=== PATIENT | female | born 1985 | race Caucasian/White ===

== ENCOUNTER → 2017-01-31 | Outpatient (REF) | payer OTHER | LOC: M SFHCWAGY 14:06 | PROVIDERS: ATTEND Nurse Practitioner Women's Health | DX: Z12.4 Encounter for screening for malignant neoplasm of cervix (principal); R87.610 Atypical squamous cells of undetermined significance on cytologic smear of cervix (ASC-US) ==

== ENCOUNTER 2017-03-03 12:19 | Emergency (ER) | payer OTHER ==
[~2017-03-03] VITALS: Ht 160 cm; Wt 58.8 kg
[2017-03-03] MEDS ORDERED: OMEP40CA2 PO (12:29)
[2017-03-03 13:34] LABS: MEAN CORPUSCULAR HEMOGLOBIN 30.7 pg (27.0-33.0); MEAN CORPUSCULAR HGB CONC 34.5 g/dl (32.0-36.5); WHITE BLOOD COUNT 9.7 K/mm3 (4.0-10.0)
[2017-03-03 13:51] LABS: ANION GAP 7 MEQ/L (8-16); BLOOD UREA NITROGEN 11 MG/DL (7-18); CALCIUM LEVEL 9.2 MG/DL (8.5-10.1); CARBON DIOXIDE LEVEL 29 MEQ/L (21-32); CHLORIDE LEVEL 104 MEQ/L (98-107); CREATININE FOR GFR 0.82 MG/DL (0.55-1.02); GLOMERULAR FILTRATION RATE > 60.0 (>60); GLUCOSE, FASTING 84 MG/DL (70-105); SODIUM LEVEL 140 MEQ/L (136-145)
--- NOTE | 2017-03-03 14:07 | REP ---
CHEST PA AND LATERAL: 03/03/2017 CLINICAL HISTORY: Chest pain. TECHNIQUE: Two views with no prior studies. FINDINGS: Lungs are well inflated without infiltrate, effusion, atelectasis or mass. No nodule, pleural thickening or apical scarring. No pneumothorax. The heart, mediastinal and hilar contours are normal. No pneumomediastinum. The aorta and airway are intact. The bony thorax shows no acute compression deformity. No free air under the diaphragm. IMPRESSION: 1. No acute cardiopulmonary change. Negative chest. Signed by Sunny Leonard MD 03/03/2017 08:01 P
[2017-03-03] MEDS ORDERED: ALBU17IN2 INH (14:19)
[2017-03-03 14:33] VITALS: BP 108/71
--- NOTE | 2017-03-04 16:14 | ECGEPIP ---
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 RBBB SIMILAR TO 04/29/12 Electronically Signed On 03-04-2017 16:13:58 EDT by Nikolai Lerma
== END 2017-03-03 14:38 | disposition home or self-care (01) ==
LOC: M ED 14:27
DX: R07.9 Chest pain, unspecified (principal); J45.909 Unspecified asthma, uncomplicated; Z79.899 Other long term (current) drug therapy; Z91.89 Other specified personal risk factors, not elsewhere classified

== ENCOUNTER → 2018-04-04 | Outpatient (REF) | payer OTHER ==
[2018-04-04 17:40] LABS: VITAMIN B12 LEVEL 784 PG/ML (247-911)
[2018-04-04 17:42] LABS: FERRITIN 25 NG/ML (8-252); IRON (FE) 118 UG/DL (50-170); PERCENT SATURATION 32.9 % (13.2-45.0); TOTAL IRON BINDING CAPACITY 359 UG/DL (250-450)
[2018-04-04 18:13] LABS: TOTAL 25(OH) VITAMIN D 23.2 NG/ML (30.0-100.0)
[2018-04-04 18:14] LABS: HEMATOCRIT 41.9 % (36.0-47.0); HEMOGLOBIN 14.1 g/dl (12.0-15.5); MEAN CORPUSCULAR HEMOGLOBIN 30.5 pg (27.0-33.0); MEAN CORPUSCULAR HGB CONC 33.7 g/dl (32.0-36.5); MEAN CORPUSCULAR VOLUME 90.7 fl (80.0-96.0); PLATELET COUNT, AUTOMATED 264 10^3/uL (150-450); RED BLOOD COUNT 4.62 10^6/uL (4.00-5.40); RED CELL DISTRIBUTION WIDTH 13.2 % (11.5-14.5); WHITE BLOOD COUNT 8.7 10^3/uL (4.0-10.0)
[2018-04-09 15:32] LABS: EBV PCR QUANTITATIVE Negative copies/mL (Negative); Lyme Disease IgG/IgM Antibodie <0.91 ISR (0.00-0.90); Lyme Disease IgM Ab Quantitati <0.80 index (0.00-0.79)
== END ==
LOC: M SFHCPLAZ 14:55
DX: R53.83 Other fatigue (principal); L74.9 Eccrine sweat disorder, unspecified; M79.1 Myalgia

== ENCOUNTER → 2018-06-17 | Outpatient (CLI) | payer OTHER | LOC: M RAD 10:25 | DX: M79.662 Pain in left lower leg (principal) | CPT/HCPCS: 78315 ==

== ENCOUNTER → 2018-07-05 | Outpatient (CLI) | payer OTHER | LOC: M RAD 10:58 | DX: N64.4 Mastodynia (principal) | CPT/HCPCS: 77065 ==

== ENCOUNTER 2018-09-30 16:11 | Emergency (ER) | payer OTHER ==
[~2018-09-30] VITALS: Ht 160 cm; Wt 60.5 kg
[2018-09-30 16:11] VITALS: BP 104/57
[~2018-09-30 16:11] MED LIST: ALBU17IN2 INH; OMEP40CA2 PO
[2018-09-30] MEDS ORDERED: ONDANSETRON 4 MG ORAL DISINTEGRATING TAB (Q0162 PER 1MG) PO ONE (16:45)
--- NOTE | 2018-09-30 16:55 | REP ---
CT HEAD WITHOUT CONTRAST: HISTORY: Head injury. COMPARISON: 07/12/2005. There is no intraparenchymal hemorrhage, mass, or midline shift. The ventricular system is normal in appearance. There is no extracerebral collection. There is no fracture. Mucosal thickening is present in the ethmoid, frontal and sphenoid sinuses. IMPRESSION: There is no intracranial lesion. Electronically Signed by Parth Pierre MD 09/30/2018 04:59 P
[2018-09-30] MEDS ORDERED: ZOFR4TAB16 PO (17:00)
== END 2018-09-30 17:08 | disposition home or self-care (01) ==
LOC: M ED 16:11
DX: S06.0X0A Concussion without loss of consciousness, initial encounter (principal); W22.8XXA Striking against or struck by other objects, initial encounter; Y92.018 Other place in single-family (private) house as the place of occurrence of the external cause; Z91.048 Other nonmedicinal substance allergy status
CPT/HCPCS: 70450; 99282; Q0162

== ENCOUNTER → 2018-12-25 | Outpatient (CLI) | payer OTHER ==
[~2018-12-25] MED LIST changes: +PROHANCE 279.3MG/ML 15ML VIAL (A9576) As Ordered ONE; +ZOFR4TAB16 PO
--- NOTE | 2018-12-25 17:24 | REP ---
Bilateral breast MRI study without and with IV gadolinium: History: High risk screening study. Comparison mammography July 05, 2018. [facility] risk assessment risk assessment score of 29.7%. Technique: 3 Minna MRI imaging was performed with a dedicated breast coil. Axial, coronal, and sagittal T1 and T2-weighted scans were obtained with and without fat saturation in the usual fashion. The study includes dynamically acquired post gadolinium enhanced imaging subtraction imaging. Maximal intensity projection and multiplanar re-formation imaging is included as well. The study was interpreted with the aid of NotehallD, an FDA approved computer-aided detection (CAD) software program, on a dedicated breast MRI work station. The gadolinium enhancement dose is 11 ml of intravenous ProHance. Findings: There is a prominent pattern of fibroglandular tissue bilaterally in a pattern which is symmetric. This corresponds with the dense breast tissue seen mammographically. No significant cystic change is seen. There is no evidence of axillary lymphadenopathy on either side. No suspicious morphologic abnormality is seen. Postcontrast images show no suspicious focus of enhancement and/or washout in either breast. Subtraction images are unremarkable. Impression: BIRADS category one negative bilateral breast MRI study. Repeat breast MRI screening exam recommended 1 year. Electronically Signed by Isma Luke MD 12/25/2018 08:31 P
== END ==
LOC: M RAD 08:46
PROVIDERS: ATTEND Nurse Practitioner Family
DX: Z12.31 Encounter for screening mammogram for malignant neoplasm of breast (principal); Z91.89 Other specified personal risk factors, not elsewhere classified
CPT/HCPCS: A9576; C8908

== ENCOUNTER 2019-08-31 12:23 | Emergency (ER) | payer OTHER ==
[~2019-08-31] VITALS: Ht 160 cm; Wt 60.0 kg
[~2019-08-31 12:23] MED LIST changes: -OMEP40CA2 PO; +OMEP40CA97 PO; -PROHANCE 279.3MG/ML 15ML VIAL (A9576) As Ordered ONE
[2019-08-31] MEDS ORDERED: methylPREDNISolone INJ 125 MG/2 ML VIAL (J2930) IV ONE (12:45)
[2019-08-31] MEDS ORDERED: FAMOTIDINE INJ 20MG/2ML VIAL (S0028) IVP ONE (12:45)
[2019-08-31] MEDS ORDERED: SPRI28TA PO (12:55)
[2019-08-31 13:13] LABS: BASO % 0.7 % (0.0-1.0); EOS # 0.4 10^3/uL (0.0-0.5); EOS % 7.4 % (0.0-3.0); HEMOGLOBIN 12.5 g/dl (12.0-15.5); LYMPH # 2.2 10^3/uL (1.5-5.0); LYMPH % 37.1 % (24.0-44.0); MEAN CORPUSCULAR HEMOGLOBIN 29.4 pg (27.0-33.0); MEAN CORPUSCULAR HGB CONC 32.9 g/dl (32.0-36.5); MEAN CORPUSCULAR VOLUME 89.4 fl (80.0-96.0); MONO # 0.3 10^3/uL (0.0-0.8); MONO % 4.7 % (0.0-5.0); NEUTROPHILS % 49.9 % (36.0-66.0); PLATELET COUNT, AUTOMATED 264 10^3/uL (150-450); RED BLOOD COUNT 4.25 10^6/uL (4.00-5.40)
[2019-08-31 13:16] LABS: BLOOD UREA NITROGEN 12 MG/DL (7-18); CALCIUM LEVEL 8.6 MG/DL (8.5-10.1); CARBON DIOXIDE LEVEL 27 MEQ/L (21-32); CHLORIDE LEVEL 106 MEQ/L (98-107); CREATININE FOR GFR 0.77 MG/DL (0.55-1.30); GLOMERULAR FILTRATION RATE > 60.0 (>60); GLUCOSE, FASTING 95 MG/DL (70-100); POTASSIUM SERUM 4.2 MEQ/L (3.5-5.1); SODIUM LEVEL 139 MEQ/L (136-145)
[2019-08-31] MEDS ORDERED: ONDANSETRON 4MG/2ML VIAL (J2405) IV ONE (13:30)
[2019-08-31] MEDS ORDERED: ACETAMINOPHEN TAB 650MG DOSE (2X325MG) PO ONE (13:30)
[2019-08-31 15:46] VITALS: BP 98/64
== END 2019-08-31 16:02 | disposition home or self-care (01) ==
LOC: M ED 12:23
DX: T78.40XA Allergy, unspecified, initial encounter (principal); Z91.010 Allergy to peanuts; Z79.899 Other long term (current) drug therapy
CPT/HCPCS: 80048; 85025; 93041; 94760; 96374; 96375; 99285; J2405; J2930

== ENCOUNTER → 2020-09-23 | Outpatient (REF) | payer OTHER ==
[~2020-09-23] MED LIST changes: +SPRI28TA PO
== END ==
LOC: M SFHCPLAZ 09:54
PROVIDERS: ATTEND Physician Assistant
DX: J40 Bronchitis, not specified as acute or chronic (principal)

== ENCOUNTER → 2020-11-12 | Outpatient (REF) | payer OTHER | LOC: M SFHCPLAZ 09:50 | PROVIDERS: ATTEND Physician Assistant | DX: T78.40XA Allergy, unspecified, initial encounter (principal) ==

== ENCOUNTER → 2020-11-23 | Outpatient (CLI) | payer OTHER ==
--- NOTE | 2020-11-23 14:41 | REP ---
INDICATION: CHRONIC COUGH COMPARISON: 09/23/2020 TECHNIQUE: PA and lateral. FINDINGS: The mediastinum and cardiac silhouette are normal. The lung muller are clear and without acute consolidation, effusion, or pneumothorax. The skeletal structures are intact and normal. IMPRESSION: No acute cardiopulmonary process. <Electronically signed by Nehemias Roth > 11/23/20 [id number]
== END ==
LOC: M ADAMS 14:15
PROVIDERS: ATTEND Physician Assistant
DX: R05 Cough (principal)

== ENCOUNTER → 2020-11-24 | Outpatient (CLI) | payer OTHER ==
--- NOTE | 2020-11-25 04:28 | REP ---
INDICATION: SINSUS. COMPARISON: None. TECHNIQUE: AP, lateral, water's and zygomatic arch views FINDINGS: Subtle partial opacification of the right maxillary sinus suggesting mucosal thickening cannot be excluded and should be correlated clinically. Remainder of the sinuses are well aerated and clear. No fluid levels are identified. No foreign body. Surrounding osseous structures are intact. IMPRESSION: Cannot exclude mucosal thickening of the right maxillary sinus. Otherwise normal examination. <Electronically signed by Nehemias Roth > 11/25/20 0424
== END ==
LOC: M ADAMS 15:10
PROVIDERS: ATTEND Physician Assistant
DX: R09.82 Postnasal drip (principal); R05 Cough

== ENCOUNTER → 2020-11-30 | Outpatient (CLI) | payer OTHER ==
[~2020-11-30] MED LIST changes: +ISOVUE-370 76% 100ML VIAL As Ordered ONE
--- NOTE | 2020-11-30 10:19 | REP ---
INDICATION: CHRONIC COUGH W/ POST NASAL DRAINAGE. COMPARISON: PA and lateral chest dated 11/23/2020. TECHNIQUE: CT of the chest with IV contrast. FINDINGS: There are no infiltrates or pleural effusions. There are no masses or nodules. The interstitium is unremarkable. There is no focal or diffuse pleural thickening. There is no mediastinal lymph node enlargement. There is a borderline enlarged right hilar node measuring up to 10 mm short axis. No other hilar lymph node enlargement. There is no axillary lymph node enlargement. The thoracic aorta is unremarkable. Cardiac size is normal. There is no pericardial effusion. Upper abdomen: The visualized areas of the liver, gallbladder, pancreas, spleen, adrenals and renal upper poles are unremarkable. IMPRESSION: Essentially negative CT study of the chest except for a single borderline enlarged right hilar node. <Electronically signed by Abundio León > 11/30/20 1011
== END ==
LOC: M RAD 08:24
PROVIDERS: ATTEND Physician Assistant
DX: R09.82 Postnasal drip (principal); R05 Cough
CPT/HCPCS: 71260; Q9967

== ENCOUNTER → 2020-12-08 | Outpatient (REF) | payer OTHER ==
[~2020-12-08] MED LIST changes: -ISOVUE-370 76% 100ML VIAL As Ordered ONE
[2020-12-08 14:17] LABS: BASO % 0.3 % (0.0-1.0); EOS # 0.1 10^3/uL (0.0-0.5); HEMOGLOBIN 12.9 g/dl (12.0-15.5); LYMPH # 0.9 10^3/uL (1.5-5.0); LYMPH % 9.1 % (24.0-44.0); MEAN CORPUSCULAR HEMOGLOBIN 29.3 pg (27.0-33.0); MEAN CORPUSCULAR HGB CONC 32.3 g/dl (32.0-36.5); MEAN CORPUSCULAR VOLUME 90.9 fl (80.0-96.0); MONO # 0.5 10^3/uL (0.0-0.8); MONO % 5.8 % (2.0-8.0); NEUTROPHILS # 7.8 10^3/uL (1.5-8.5); NEUTROPHILS % 83.4 % (36.0-66.0); PLATELET COUNT, AUTOMATED 235 10^3/uL (150-450); WHITE BLOOD COUNT 9.4 10^3/uL (4.0-10.0)
[2020-12-08 14:43] LABS: ERYTHROCYTE SEDIMENTATION RATE 17 mm/hr (0-20)
[2020-12-08 14:59] LABS: ALBUMIN 4.1 GM/DL (3.2-5.2); ALT/SGPT 19 U/L (12-78); BILIRUBIN,TOTAL 0.4 MG/DL (0.2-1.0); BLOOD UREA NITROGEN 6 MG/DL (7-18); C REACTIVE PROTEIN QUANTITATIV 2.44 MG/DL (0.00-0.30); CALCIUM LEVEL 9.2 MG/DL (8.5-10.1); CARBON DIOXIDE LEVEL 29 MEQ/L (21-32); CHLORIDE LEVEL 104 MEQ/L (98-107); CREATININE FOR GFR 0.72 MG/DL (0.55-1.30); GLOMERULAR FILTRATION RATE > 60.0 (>60); GLUCOSE, FASTING 95 MG/DL (70-100); POTASSIUM SERUM 3.9 MEQ/L (3.5-5.1); SODIUM LEVEL 138 MEQ/L (136-145); TOTAL PROTEIN 7.2 GM/DL (6.4-8.2)
[2020-12-08 15:07] LABS: MONO REFLEX EBV VCA IgM NEGATIVE (NEGATIVE)
== END ==
LOC: M SFHCPLAZ 10:45
PROVIDERS: ATTEND Physician Assistant
DX: J02.9 Acute pharyngitis, unspecified (principal); R50.9 Fever, unspecified; R05 Cough

== ENCOUNTER → 2020-12-09 | Outpatient (REF) | payer OTHER | LOC: M SFHCPLAZ 13:47 | PROVIDERS: ATTEND Physician Assistant | DX: J02.9 Acute pharyngitis, unspecified (principal); R05 Cough ==

== ENCOUNTER → 2020-12-21 | Outpatient (CLI) | payer OTHER ==
[2020-12-21 12:20] LABS: SWEAT TEST LFT ARM 17.5 MEQ CL/L (0.0-40.0); SWEAT TEST RT ARM 17.5 MEQ CL/L (0.0-40.0); WEIGHT OF SWEAT LFT ARM 79.1 MG; WEIGHT OF SWEAT RT ARM 69.8 MG
== END ==
LOC: M LAB 09:30
PROVIDERS: ATTEND Physician Assistant
DX: R05 Cough (principal); R09.81 Nasal congestion; K21.9 Gastro-esophageal reflux disease without esophagitis

== ENCOUNTER → 2021-01-10 | Outpatient (REF) | payer OTHER ==
[2021-01-10 17:15] LABS: AMYLASE 39 U/L (25-115); LIPASE 130 U/L (73-393)
== END ==
LOC: M LAB REF 16:27
PROVIDERS: ATTEND Physician Assistant Medical
DX: R10.12 Left upper quadrant pain (principal)

== ENCOUNTER 2021-03-09 18:02 | Emergency (ER) | payer OTHER ==
[~2021-03-09] VITALS: Ht 160 cm; Wt 58.0 kg
[~2021-03-09 18:02] MED LIST changes: +OMEP40CA4 PO; -OMEP40CA97 PO
[2021-03-09] MEDS ORDERED: IBUP200T45 PO (18:17)
[2021-03-09] MEDS ORDERED: PANT40TA29 (18:17)
[2021-03-09] MEDS ORDERED: MONT10TA10 (18:17)
[2021-03-09] MEDS ORDERED: FLUTISP (18:17)
[2021-03-09] MEDS ORDERED: ARNU1INH (18:17)
[2021-03-09] MEDS ORDERED: diphenhydrAMINE 50MG/ML VIAL (J1200) IV STA (20:12)
[2021-03-09] MEDS ORDERED: ONDANSETRON 4MG/2ML VIAL IV ONE (20:15)
[2021-03-09] MEDS ORDERED: NS 1,000 ML IV ONE (20:15)
[2021-03-09 21:01] LABS: BASO # 0.1 10^3/uL (0.0-0.2); BASO % 0.7 % (0.0-1.0); EOS # 0.5 10^3/uL (0.0-0.5); EOS % 7.1 % (0.0-3.0); HEMATOCRIT 40.1 % (36.0-47.0); HEMOGLOBIN 13.3 g/dl (12.0-15.5); LYMPH # 2.2 10^3/uL (1.5-5.0); LYMPH % 30.3 % (24.0-44.0); MEAN CORPUSCULAR HGB CONC 33.2 g/dl (32.0-36.5); MEAN CORPUSCULAR VOLUME 90.5 fl (80.0-96.0); MONO # 0.4 10^3/uL (0.0-0.8); MONO % 5.3 % (2.0-8.0); NEUTROPHILS # 4.2 10^3/uL (1.5-8.5); NEUTROPHILS % 56.5 % (36.0-66.0); PLATELET COUNT, AUTOMATED 295 10^3/uL (150-450); RED BLOOD COUNT 4.43 10^6/uL (4.00-5.40); WHITE BLOOD COUNT 7.4 10^3/uL (4.0-10.0)
[2021-03-09 21:31] LABS: ALT/SGPT 23 U/L (12-78); BILIRUBIN,DIRECT < 0.1 MG/DL (0.0-0.2); BILIRUBIN,TOTAL 0.2 MG/DL (0.2-1.0); BLOOD UREA NITROGEN 14 MG/DL (7-18); CALCIUM LEVEL 8.5 MG/DL (8.5-10.1); CARBON DIOXIDE LEVEL 29 MEQ/L (21-32); CHLORIDE LEVEL 108 MEQ/L (98-107); CK-MB VALUE MASS < 1.0 NG/ML (<3.6); CPK CREATINE PHOSPHOKINASE 278 U/L (26-192); CREATININE FOR GFR 0.74 MG/DL (0.55-1.30); GLOMERULAR FILTRATION RATE > 60.0 (>60); GLUCOSE, FASTING 82 MG/DL (70-100); MB/CK RELATIVE INDEX 0.36 (< OR =4); SODIUM LEVEL 137 MEQ/L (136-145); TOTAL PROTEIN 7.4 GM/DL (6.4-8.2); TROPONIN I < 0.02 NG/ML (< 0.10)
[2021-03-09 21:32] LABS: POTASSIUM SERUM 7.9 MEQ/L (3.5-5.1)
--- NOTE | 2021-03-09 21:35 | REPVR ---
PROCEDURE INFORMATION: Exam: CT Head Without Contrast Exam date and time: 03/09/2021 8:27 PM Age: 35 years old Clinical indication: Other: "burning head pain" never before/ family history anuer. ; Additional info: "burning head pain" never before/ family history anuer. TECHNIQUE: Imaging protocol: Computed tomography of the head without contrast. Radiation optimization: All CT scans at this facility use at least one of these dose optimization techniques: automated exposure control; mA and/or kV adjustment per patient size (includes targeted exams where dose is matched to clinical indication); or iterative reconstruction. COMPARISON: 1. CT Head without contrast 2018-09-30 16:36 2. DX SINUSES COMPLETE 2020-11-24 15:03 FINDINGS: Brain: Normal. No hemorrhage. Unremarkable white matter. No mass effect. Cerebral ventricles: No ventriculomegaly. Paranasal sinuses: Visualized sinuses are unremarkable. No fluid levels. Mastoid air cells: Visualized mastoid air cells are well aerated. Bones/joints: Unremarkable. No acute fracture. Soft tissues: Unremarkable. IMPRESSION: No acute intracranial abnormality. Electronically signed by: Brandyn Barcenas On 03/09/2021 21:35:20 PM
[2021-03-09 22:48] LABS: BLOOD UREA NITROGEN 13 MG/DL (7-18); CALCIUM LEVEL 7.9 MG/DL (8.5-10.1); CARBON DIOXIDE LEVEL 28 MEQ/L (21-32); CHLORIDE LEVEL 108 MEQ/L (98-107); CREATININE FOR GFR 0.73 MG/DL (0.55-1.30); GLOMERULAR FILTRATION RATE > 60.0 (>60); GLUCOSE, FASTING 102 MG/DL (70-100); POTASSIUM SERUM 3.8 MEQ/L (3.5-5.1); SODIUM LEVEL 141 MEQ/L (136-145)
[2021-03-09 23:02] VITALS: BP 115/62
--- NOTE | 2021-03-10 17:57 | ECGEPIP ---
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
== END 2021-03-09 23:35 | disposition home or self-care (01) ==
LOC: M ED 18:02
DX: G44.209 Tension-type headache, unspecified, not intractable (principal); J30.9 Allergic rhinitis, unspecified; R07.89 Other chest pain; E86.0 Dehydration; I45.19 Other right bundle-branch block; K21.9 Gastro-esophageal reflux disease without esophagitis
CPT/HCPCS: 70450; 80047; 80048; 80076; 82550; 82553; 84484; 85025; 93005; 96361; 96374; 96375; 99284; J1200; J2405

== ENCOUNTER → 2021-03-21 | Outpatient (REF) | payer OTHER ==
[~2021-03-21] MED LIST changes: +ARNU1INH; +FLUTISP; +IBUP200T45 PO; +MONT10TA10; +PANT40TA29
== END ==
LOC: M LAB REF 11:46
PROVIDERS: ATTEND Physician Assistant Medical
DX: J02.9 Acute pharyngitis, unspecified (principal)

== ENCOUNTER → 2021-03-29 | Outpatient (CLI) | payer OTHER ==
--- NOTE | 2021-03-29 16:34 | PFTRPT ---
Site: [facility], [address] [place] [address], [id number] ID: [id number] Name: ROBER HILLIARD Visit Date: 03/29/2021 Second ID: [id number] Referring Doctor: Demetrio Li MD Reviewing Doctor: Demetrio Li MD [employer] Lecturer: Sarkis RODAS, KEVIN Age: 35 : 1985 Sex: Female Race: Height: 63.00 Inches Weight: 130.00 Lbs BSA: 1.61 Order IDs: [id number] Requested Test(s): <RESP-PFT.PFT B/A> Diagnosis: J45.40 test meet the ATS standards for acceptability and repeatability. Pt was given four puffs of albuterol for post bronchodilator. Review Status: Not Reviewed Pre-Bronch Post-Bronch Pred Actual %Pred Actual %Chng SPIROMETRY FVC (L) 3.63 4.37 120 4.45 1 FEV1 (L) 3.02 3.90 129 4.03 3 FEV1/FVC (%) 83 89 107 91 1 FEF 25% (L/sec) 5.49 7.52 136 8.52 13 FEF 50% (L/sec) 4.37 6.51 149 7.07 8 FEF 75% (L/sec) 1.80 1.60 89 3.22 100 FEF 25-75% (L/sec) 3.26 5.07 155 6.22 22 FEF Max (L/sec) 6.86 9.19 133 9.70 5 FIVC (L) 4.24 2.55 -39 FIF 50% (L/sec) 3.81 5.48 143 2.96 -46 FIF Max (L/sec) 5.49 4.49 -18 MVV (L/min) 104 141 135 Expiratory Time (sec) 6.86 5.43 -20 Back Extrap Vol (L) 0.11 0.11 -4 Time To FEFmax (sec) 0.074 0.059 -20 LUNG VOLUMES SVC (L) 3.47 4.29 123 IC (L) 2.21 2.51 113 ERV (L) 1.26 1.78 141 TGV (L) 2.69 4.02 149 RV (Pleth) (L) 1.43 2.24 156 TLC (Pleth) (L) 4.90 6.53 133 RV/TLC (Pleth) (%) 29 34 118 DIFFUSION DLCOunc (ml/min/mmHg) 24.05 25.50 106 DLCOcor (ml/min/mmHg) 24.05 26.08 108 DL/VA (ml/min/mmHg/L) 4.91 4.35 88 VA (L) 4.90 5.99 122 BHT (sec) 9.58 IVC (L) 4.00 TLC (SB) (L) 6.14 AIRWAYS RESISTANCE Raw (cmH2O/L/s) 1.86 0.44 23 Gaw (L/s/cmH2O) 1.03 3.59 348 sRaw (cmH2O*s) 4.76 1.66 34 sGaw (1/cmH2O*s) 0.20 0.92 459 BLOOD GASES Hgb (gm/dL) 12.7
== END ==
LOC: M CARPUL 15:00
PROVIDERS: ATTEND Internal Medicine Pulmonary Disease
DX: J45.40 Moderate persistent asthma, uncomplicated (principal)

== ENCOUNTER → 2021-03-31 | Outpatient (CLI) | payer OTHER ==
[2021-03-31 16:30] LABS: BASO % 0.2 % (0.0-1.0); EOS % 0.3 % (0.0-3.0); HEMATOCRIT 41.6 % (36.0-47.0); HEMOGLOBIN 13.5 g/dl (12.0-15.5); LYMPH # 0.9 10^3/uL (1.5-5.0); LYMPH % 7.3 % (24.0-44.0); MEAN CORPUSCULAR HEMOGLOBIN 29.7 pg (27.0-33.0); MEAN CORPUSCULAR HGB CONC 32.5 g/dl (32.0-36.5); MEAN CORPUSCULAR VOLUME 91.4 fl (80.0-96.0); MONO # 0.9 10^3/uL (0.0-0.8); MONO % 7.8 % (2.0-8.0); NEUTROPHILS # 9.7 10^3/uL (1.5-8.5); NEUTROPHILS % 84.1 % (36.0-66.0); PLATELET COUNT, AUTOMATED 235 10^3/uL (150-450); RED BLOOD COUNT 4.55 10^6/uL (4.00-5.40); WHITE BLOOD COUNT 11.6 10^3/uL (4.0-10.0)
[2021-03-31 17:07] LABS: BLOOD UREA NITROGEN 9 MG/DL (7-18); CALCIUM LEVEL 9.1 MG/DL (8.5-10.1); CARBON DIOXIDE LEVEL 30 MEQ/L (21-32); CHLORIDE LEVEL 101 MEQ/L (98-107); CREATININE FOR GFR 0.73 MG/DL (0.55-1.30); GLOMERULAR FILTRATION RATE > 60.0 (>60); GLUCOSE, FASTING 91 MG/DL (70-100); POTASSIUM SERUM 4.5 MEQ/L (3.5-5.1); SODIUM LEVEL 135 MEQ/L (136-145)
[2021-03-31 17:08] LABS: ALBUMIN 4.3 GM/DL (3.2-5.2); ALT/SGPT 18 U/L (12-78); BILIRUBIN,TOTAL 0.5 MG/DL (0.2-1.0); TOTAL PROTEIN 7.5 GM/DL (6.4-8.2)
[2021-04-02 16:31] LABS: Lyme Disease IgG/IgM Antibodie <0.91 ISR (0.00-0.90); Lyme Disease IgM Ab Quantitati <0.80 index (0.00-0.79)
== END ==
LOC: M WUC 11:19
PROVIDERS: ATTEND Physician Assistant
DX: R51.9 Headache, unspecified (principal)

== ENCOUNTER → 2021-04-04 | Outpatient (CLI) | payer OTHER ==
--- NOTE | 2021-04-04 17:06 | REPVR ---
PROCEDURE INFORMATION: Exam: CT Maxillofacial Without Contrast, Sinus Exam date and time: 04/04/2021 11:34 AM Age: 35 years old Clinical indication: Maxilla pain and other: Frontal sinus pain; Additional info: Sinusitis TECHNIQUE: Imaging protocol: CT Maxillofacial without contrast. Focus on the sinuses. Radiation optimization: All CT scans at this facility use at least one of these dose optimization techniques: automated exposure control; mA and/or kV adjustment per patient size (includes targeted exams where dose is matched to clinical indication); or iterative reconstruction. COMPARISON: DX SINUSES COMPLETE 11/24/2020 3:03 PM FINDINGS: Frontal sinuses: There is moderate mucosal thickening in the frontal sinuses. The frontal sinuses are hypoplastic. Ethmoid air cells: There is marked mucosal thickening in the ethmoid air cells. Sphenoid sinuses: Moderate mucosal thickening is present in the right sphenoid sinus. There is mild mucosal thickening in the left sphenoid sinus. There are no air-fluid levels. Maxillary sinuses: There is moderate mucosal thickening in the maxillary sinuses. There are no air-fluid levels. Nasal cavity/Septum: Mild leftward bowing of the posterior nasal septum is present. A leftward directed nasal spur is also seen abutting the undersurface of the left middle turbinate. Orbital cavity: Orbits are normal. Globes are unremarkable. Bones/joints: Unremarkable. Soft tissues: Unremarkable. IMPRESSION: Moderate mucosal thickening throughout the paranasal sinuses. No air-fluid levels. Electronically signed by: Krishna Quinteros On 04/04/2021 17:05:44 PM
== END ==
LOC: M PLAIMG 11:18
PROVIDERS: ATTEND Physician Assistant Medical
DX: J01.90 Acute sinusitis, unspecified (principal)

== ENCOUNTER → 2021-04-21 | Outpatient (CLI) | payer OTHER ==
[~2021-04-21] MED LIST changes: +METHACHOLINE KIT (J7674) INH ONE
--- NOTE | 2021-04-21 11:10 | PFTRPT ---
Site: [facility], [address] [place], [address] ID: [id number] Name: ROBER HILLIARD Visit Date: 04/21/2021 Second ID: [id number] Referring Doctor: Demetrio Li MD Reviewing Doctor: Demetrio Li MD Cinder Man: Sarkis RODAS, KEVIN Age: 35 : 1985 Sex: Female Race: Height: 63.00 Inches Weight: 130.00 Lbs BSA: 1.61 Order IDs: [id number] Requested Test(s): <RESP-PFT.METH CHAL> Diagnosis: J45.40 Post Test Comments: Pt was given four puffs of albuterol for post bronchodilator. Review Status: Not Reviewed Pre-Bronch Post-Bronch Pred Actual %Pred Actual %Chng SPIROMETRY FVC (L) 3.63 4.35 119 4.39 1 FEV1 (L) 3.02 3.82 126 3.64 -4 FEV1/FVC (%) 83 88 105 83 -5 FEF 25% (L/sec) 5.48 8.12 148 7.72 -4 FEF 50% (L/sec) 4.37 6.31 144 5.35 -15 FEF 75% (L/sec) 1.79 2.09 116 1.71 -18 FEF 25-75% (L/sec) 3.26 4.54 139 4.01 -11 FEF Max (L/sec) 6.86 9.05 131 8.22 -9 FIVC (L) 4.22 2.78 -34 FIF 50% (L/sec) 3.81 5.30 139 3.68 -30 FIF Max (L/sec) 5.39 4.63 -14 Expiratory Time (sec) 6.34 4.78 -24 Back Extrap Vol (L) 0.11 0.10 -7 Time To FEFmax (sec) 0.065 0.070 8
== END ==
LOC: M CARPUL 10:09
PROVIDERS: ATTEND Internal Medicine Pulmonary Disease
DX: J45.40 Moderate persistent asthma, uncomplicated (principal)
CPT/HCPCS: 94070; J7674

== ENCOUNTER → 2021-05-12 | Outpatient (REF) | payer OTHER ==
[~2021-05-12] MED LIST changes: -METHACHOLINE KIT (J7674) INH ONE
== END ==
LOC: M SFHCWAGY 13:09
PROVIDERS: ATTEND Nurse Practitioner Women's Health
DX: Z12.4 Encounter for screening for malignant neoplasm of cervix (principal)
CPT/HCPCS: 87624; G0123

== ENCOUNTER → 2021-06-01 | Outpatient (CLI) | payer OTHER ==
--- NOTE | 2021-06-01 10:42 | REP ---
INDICATION: SINUSITIS. COMPARISON: Comparison CT study of the paranasal sinuses is from April 04, 2021. TECHNIQUE: Helical scanning is acquired and 2 mm axial images re-formatted. Coronal and sagittal MPR images are generated and reviewed. FINDINGS: There is moderate mucosal thickening in the maxillary sinuses bilaterally, left more so than right. These changes are slightly more prominent than on the April 04, 2021 study. There is multifocal mucosal thickening in the ethmoid sinuses bilaterally. This is somewhat improved. Mucosal thickening is seen bilaterally in the sphenoid sinuses also slightly improved. Mastoid aeration is clear bilaterally. The frontal sinuses show mild mucosal thickening on the right. The left frontal sinus is clear and improved. Bony nasal septum deviates to the left with a septal beak unchanged. Nasal turbinates soft tissues are unremarkable. No evidence of nasal polyp. Ostiomeatal complexes are patent. Mucosal thickening in the infundibulum on the right is improved. IMPRESSION: Poly sinusitis changes, generally improved from the April 04, 2021 study. Mucosal thickening in the maxillary sinuses is slightly more prominent. <Electronically signed by Ramesh Luke > 06/01/21 1038
== END ==
LOC: M RAD 09:30
PROVIDERS: ATTEND Otolaryngology
DX: J32.0 Chronic maxillary sinusitis (principal)

== ENCOUNTER 2021-06-10 07:59 | Emergency (ER) | payer OTHER ==
[~2021-06-10] VITALS: Ht 160 cm; Wt 60.2 kg
[2021-06-10] MEDS ORDERED: DULO1CAP4 (08:24)
[2021-06-10] MEDS ORDERED: ALPRAZolam 0.25 MG TAB PO ONE (09:20)
[2021-06-10 10:09] LABS: BASO % 0.5 % (0.0-1.0); EOS % 0.5 % (0.0-3.0); HEMATOCRIT 40.6 % (36.0-47.0); HEMOGLOBIN 13.8 g/dl (12.0-15.5); LYMPH # 0.9 10^3/uL (1.5-5.0); LYMPH % 10.7 % (24.0-44.0); MEAN CORPUSCULAR HEMOGLOBIN 30.4 pg (27.0-33.0); MEAN CORPUSCULAR VOLUME 89.4 fl (80.0-96.0); MONO # 0.2 10^3/uL (0.0-0.8); MONO % 1.9 % (2.0-8.0); NEUTROPHILS # 7.1 10^3/uL (1.5-8.5); NEUTROPHILS % 86.2 % (36.0-66.0); PLATELET COUNT, AUTOMATED 256 10^3/uL (150-450); RED BLOOD COUNT 4.54 10^6/uL (4.00-5.40); WHITE BLOOD COUNT 8.3 10^3/uL (4.0-10.0)
[2021-06-10 10:44] LABS: ERYTHROCYTE SEDIMENTATION RATE 6 mm/hr (0-20)
[2021-06-10 11:59] VITALS: BP 97/59
== END 2021-06-10 12:12 | disposition home or self-care (01) ==
LOC: M ED 07:59
DX: R25.1 Tremor, unspecified (principal); R68.83 Chills (without fever); R42 Dizziness and giddiness; J45.909 Unspecified asthma, uncomplicated; K21.9 Gastro-esophageal reflux disease without esophagitis; Z79.51 Long term (current) use of inhaled steroids; Z79.899 Other long term (current) drug therapy

== ENCOUNTER → 2021-08-17 | Outpatient (REF) | payer OTHER ==
[~2021-08-17] MED LIST changes: +DULO1CAP4; -IBUP200T45 PO; +IBUP200T46 PO
== END ==
LOC: M LAB REF 16:12
PROVIDERS: ATTEND Physician Assistant Medical
DX: D72.828 Other elevated white blood cell count (principal)

== ENCOUNTER → 2021-08-31 | Outpatient (CLI) | payer OTHER ==
--- NOTE | 2021-08-31 16:19 | REP ---
INDICATION: FOREIGN BODY IN STOMACH, INITIAL ENCOUNTER. COMPARISON: Multiple the latest 11/23/2020 TECHNIQUE: PA and lateral FINDINGS: The superior mediastinal structures are midline. The cardiac silhouette is unremarkable in size, shape, and position. The diaphragmatic surfaces of the lungs are regular, and the costophrenic angles are clear. The pulmonary muller are clear. The imaged osseous structures are intact. There is no evidence of a radiopaque foreign body. IMPRESSION: There is no acute cardiopulmonary disease. <Electronically signed by Jerzy Alberto > 08/31/21 [id number]
== END ==
LOC: M RAD 15:43
PROVIDERS: ATTEND Internal Medicine Gastroenterology
DX: T18.2XXA Foreign body in stomach, initial encounter (principal); R94.31 Abnormal electrocardiogram [ECG] [EKG]

== ENCOUNTER → 2022-10-25 | Outpatient (CLI) | payer OTHER ==
[~2022-10-25] MED LIST changes: +ISOVUE-370 76% 100ML VIAL As Ordered ONE; -MONT10TA10; +MONT10TA97
== END ==
LOC: M RAD 15:45
PROVIDERS: ATTEND Otolaryngology
DX: R13.10 Dysphagia, unspecified (principal)

== ENCOUNTER → 2023-04-30 | Outpatient (CLI) | payer OTHER ==
[~2023-04-30] MED LIST changes: +FLUT50SP17; -FLUTISP; -ISOVUE-370 76% 100ML VIAL As Ordered ONE
[2023-04-30 16:46] LABS: BASO % 0.4 % (0.0-1.0); EOS # 0.5 10^3/uL (0.0-0.5); EOS % 6.6 % (0.0-3.0); HEMATOCRIT 41.6 % (36.0-47.0); HEMOGLOBIN 13.3 g/dl (12.0-15.5); LYMPH # 1.4 10^3/uL (1.5-5.0); LYMPH % 18.5 % (24.0-44.0); MEAN CORPUSCULAR HEMOGLOBIN 30.2 pg (27.0-33.0); MEAN CORPUSCULAR VOLUME 94.3 fl (80.0-96.0); MONO # 0.3 10^3/uL (0.0-0.8); MONO % 4.2 % (2.0-8.0); NEUTROPHILS # 5.4 10^3/uL (1.5-8.5); PLATELET COUNT, AUTOMATED 286 10^3/uL (150-450); RED BLOOD COUNT 4.41 10^6/uL (4.00-5.40); WHITE BLOOD COUNT 7.7 10^3/uL (4.0-10.0)
[2023-04-30 17:18] LABS: ALBUMIN 4.4 G/DL (3.2-5.2); ALKALINE PHOSPHATASE 46 U/L (46-116); ALT/SGPT 12 U/L (7.0-40); AST/SGOT 9 U/L (<34); BILIRUBIN,TOTAL 0.5 MG/DL (0.3-1.2); BLOOD UREA NITROGEN 16 MG/DL (9-23); CARBON DIOXIDE LEVEL 28 MMOL/L (20-31); CHLORIDE LEVEL 103 MMOL/L (98-107); CREATININE FOR GFR 0.76 MG/DL (0.55-1.30); GLOMERULAR FILTRATION RATE > 60.0 (>60); GLUCOSE, FASTING 93 MG/DL (60-100); POTASSIUM SERUM 4.2 MMOL/L (3.5-5.1); SODIUM LEVEL 139 MMOL/L (136-145); TOTAL PROTEIN 7.4 G/DL (5.7-8.2)
== END ==
LOC: M WUC 11:47
PROVIDERS: ATTEND Nurse Practitioner Family
DX: R10.30 Lower abdominal pain, unspecified (principal); R30.0 Dysuria

== ENCOUNTER → 2023-05-22 | Outpatient (CLI) | payer OTHER | LOC: M RAD 16:21 | PROVIDERS: ATTEND Nurse Practitioner Family | DX: D25.9 Leiomyoma of uterus, unspecified (principal) ==

== ENCOUNTER → 2023-10-08 | Outpatient (CLI) | payer OTHER ==
[~2023-10-08] MED LIST changes: -FLUT50SP17; +FLUTISP
== END ==
LOC: M WHC 09:00
PROVIDERS: ATTEND Nurse Practitioner Family
DX: Z12.31 Encounter for screening mammogram for malignant neoplasm of breast (principal)

== ENCOUNTER → 2023-10-08 | Outpatient (REF) | payer OTHER | LOC: M SFHCWAGY 13:36 | PROVIDERS: ATTEND Nurse Practitioner Family | DX: Z12.4 Encounter for screening for malignant neoplasm of cervix (principal) | CPT/HCPCS: 87624; G0123 ==

== ENCOUNTER → 2024-06-04 | Outpatient (CLI) | payer OTHER ==
[~2024-06-04] MED LIST changes: +E-Z-GAS II EFFERVESCENT PACKET (SODIUM BICARB./CITRIC ACID/SIMETHICONE) As Ordered ONE; +E-Z-HD 98% w/w 340GM SUSP BTL As Ordered ONE; +E-Z-PAQUE 96% w/w SUSP 176GM BTL As Ordered ONE
== END ==
LOC: M RAD 08:34
PROVIDERS: ATTEND Physician Assistant
DX: R14.3 Flatulence (principal); K21.9 Gastro-esophageal reflux disease without esophagitis

== ENCOUNTER → 2024-10-08 | Outpatient (REF) | payer OTHER ==
[~2024-10-08] MED LIST changes: -E-Z-GAS II EFFERVESCENT PACKET (SODIUM BICARB./CITRIC ACID/SIMETHICONE) As Ordered ONE; -E-Z-HD 98% w/w 340GM SUSP BTL As Ordered ONE; -E-Z-PAQUE 96% w/w SUSP 176GM BTL As Ordered ONE
[2024-10-08 17:44] LABS: LIPASE 42 U/L (12-53)
[2024-10-08 17:45] LABS: AMYLASE 54 U/L (30-118)
[2024-10-08 17:46] LABS: ALBUMIN 4.2 G/DL (3.2-5.2); ALKALINE PHOSPHATASE 43 U/L (35-104); ALT/SGPT 14 U/L (7.0-40); AST/SGOT 13 U/L (<34); BASO % 0.5 % (0.0-1.0); BILIRUBIN,TOTAL 0.5 MG/DL (0.3-1.2); BLOOD UREA NITROGEN 13 MG/DL (9-23); CALCIUM LEVEL 9.2 MG/DL (8.5-10.1); CARBON DIOXIDE LEVEL 30 MMOL/L (20-31); CHLORIDE LEVEL 102 MMOL/L (98-107); CREATININE FOR GFR 0.79 MG/DL (0.55-1.30); EOS # 0.5 10^3/uL (0.0-0.5); EOS % 6.5 % (0.0-3.0); GLOMERULAR FILTRATION RATE > 60.0 (>60); GLUCOSE, FASTING 91 MG/DL (60-100); HEMATOCRIT 38.9 % (36.0-47.0); HEMOGLOBIN 12.9 g/dl (12.0-15.5); LYMPH # 1.9 10^3/uL (1.5-5.0); LYMPH % 25.1 % (24.0-44.0); MEAN CORPUSCULAR HEMOGLOBIN 30.2 pg (27.0-33.0); MEAN CORPUSCULAR HGB CONC 33.2 g/dl (32.0-36.5); MEAN CORPUSCULAR VOLUME 91.1 fl (80.0-96.0); MONO # 0.4 10^3/uL (0.0-0.8); NEUTROPHILS # 4.8 10^3/uL (1.5-8.5); NEUTROPHILS % 62.6 % (36.0-66.0); PLATELET COUNT, AUTOMATED 266 10^3/uL (150-450); POTASSIUM SERUM 4.2 MMOL/L (3.5-5.1); RED BLOOD COUNT 4.27 10^6/uL (4.00-5.40); SODIUM LEVEL 142 MMOL/L (136-145); TOTAL PROTEIN 7.2 G/DL (5.7-8.2); WHITE BLOOD COUNT 7.7 10^3/uL (4.0-10.0)
== END ==
LOC: M LAB REF 16:48
PROVIDERS: ATTEND Physician Assistant
DX: R10.30 Lower abdominal pain, unspecified (principal); R11.0 Nausea

== ENCOUNTER → 2024-10-14 | Outpatient (REF) | payer OTHER ==
[2024-10-14 19:16] LABS: Trichomonas vaginalis (AMP) NOT DETECTED (NEGATIVE)
[2024-10-14 19:39] LABS: GC DNA AMPLIFICATION NEGATIVE (NEGATIVE)
== END ==
LOC: M SFHCWAGY 17:04
PROVIDERS: ATTEND Nurse Practitioner Family
DX: R10.2 Pelvic and perineal pain (principal)

== ENCOUNTER → 2024-11-07 | Outpatient (CLI) | payer OTHER | LOC: M WHC 07:15 | PROVIDERS: ATTEND Nurse Practitioner Family | DX: R10.2 Pelvic and perineal pain (principal) ==

== ENCOUNTER → 2024-12-19 | Outpatient (REF) | payer OTHER ==
[2024-12-19 14:03] LABS: APPEARANCE, URINE CLEAR (CLEAR); BACTERIA, URINE AUTO NEGATIVE (NEGATIVE); BILIRUBIN, URINE AUTO NEGATIVE (NEGATIVE); BLOOD, URINE BLOOD 1+ (NEGATIVE); COLOR, URINE STRAW (YELLOW); GLUCOSE, URINE (UA) AUTO NEGATIVE (NEGATIVE); KETONE, URINE AUTO NEGATIVE (NEGATIVE); LEUKOCYTE ESTERASE, URINE AUTO NEGATIVE (NEGATIVE); MUCUS, URINE SMALL (NEGATIVE); NITRITE, URINE AUTO NEGATIVE (NEGATIVE); PROTEIN, URINE AUTO NEGATIVE (NEGATIVE); RBC, URINE AUTO 0 /HPF (0-3); SPECIFIC GRAVITY URINE AUTO 1.006 (1.002-1.035); SQUAMOUS EPITHELIAL CELL UR AU 0 /HPF (0-6); UROBILINOGEN, URINE AUTO 0.2 mg/dL (0.0-2.0); WBC, URINE AUTO 0 /HPF (0-3)
[2024-12-19 15:07] LABS: Trichomonas vaginalis (AMP) NOT DETECTED (NEGATIVE)
[2024-12-19 15:31] LABS: GC DNA AMPLIFICATION NEGATIVE (NEGATIVE)
== END ==
LOC: M PLALAB 12:46
PROVIDERS: ATTEND Obstetrics & Gynecology
DX: Z01.419 Encounter for gynecological examination (general) (routine) without abnormal findings (principal); R10.2 Pelvic and perineal pain